=== PATIENT | male | born 1995 | race Caucasian/White ===

== ENCOUNTER 2018-12-19 23:59 | Emergency (ER) | payer OTHER ==
[~2018-12-19] VITALS: Ht 175.3 cm; Wt 72.7 kg
[2018-12-20 01:12] VITALS: BP 128/74
[2018-12-20] MEDS ORDERED: AMOX TR/POT CLAV 875 MG/125 MG TABLET PO ONE (01:30)
== END 2018-12-20 01:21 | disposition home or self-care (01) ==
LOC: EMS 12-20 00:02
DX: H60.92 Unspecified otitis externa, left ear (principal); H66.42 Suppurative otitis media, unspecified, left ear; F17.210 Nicotine dependence, cigarettes, uncomplicated

== ENCOUNTER 2019-06-03 21:23 | Emergency (ER) | payer OTHER ==
[~2019-06-03] VITALS: Ht 180.3 cm; Wt 65.9 kg
[2019-06-03 21:58] VITALS: BP 130/73
[2019-06-04] MEDS ORDERED: FLUORESCEIN SODIUM 1 MG STRIP OS ONE (02:15)
[2019-06-04] MEDS ORDERED: TETRACAINE HCL/PF 0.5% 4 ML OPHTHALMIC SOLUTION OS ONE (02:15)
== END 2019-06-04 03:42 | disposition home or self-care (01) ==
LOC: EMS 21:24
DX: B00.53 Herpesviral conjunctivitis (principal); B00.1 Herpesviral vesicular dermatitis